=== PATIENT | female | born 1975 | race Caucasian/White ===

== ENCOUNTER 2016-08-29 18:26 | Emergency (ER) | payer OTHER ==
--- NOTE | ~2016-08-29 | CR72 ---
[facility]. [facility] A Service of [facility] RADIOLOGY TEXT RESULTS PATIENT: TANKSeptember LOCATION: SED : 79 UNIT #: [id number] AGE: [address]: El Alvarez MD SEX: F ORDER DR: [id number] [address] [address] [id number] E MR#: [id number] Acc #: [id number] NAME: TANK KELLY Alexa. : 1975 SEX: F STUDY DATE/TIME: 08/29/2016 18:29 UNIT: SED ROOM: STUDY DESCRIPTION: CR Chest Single View Portable Attending Physician: El Alvarez M.D. Ordering Physician: El Alvarez M.D. Primary Care Physician: Angela Dunlap A.P.R.N. MEDICAL IMAGING REPORT This report is preliminary unless electronic signature is present. EXAM Portable chest HISTORY Chest pain just prior to admission. COMPARISON 09/25/2015 FINDINGS A single AP portable view of the chest shows both lungs to be clear. The heart is normal in size. The mediastinal contour is normal. No significant bone abnormalities are seen. IMPRESSION Normal portable chest. Dictated by... Travon Pride M.D. THIS IS AN ELECTRONICALLY VERIFIED REPORT Travon Pride M.D. at 08/30/2016 6:31 PM Juanjo TD: 08/30/2016 08:51 JOB #: [id number] MEDICAL IMAGING REPORT
--- NOTE | ~2016-08-29 | EKG ---
PATIENT: TANKSeptember UNIT #: [id number] Ventricular Rate: 71 BPM Atrial Rate: 71 BPM P-R Interval: 134 ms QRS Duration: 82 ms Q-T Interval: 408 ms QTC Calculation(Bezet): 443 ms P [place]: 72 degrees Calculated R [place]: 1 degrees Calculated T [place]: 29 degrees Diagnosis Line: Normal sinus rhythm Diagnosis Line: Cannot rule out Anterior infarct , age Diagnosis Line: undetermined Diagnosis Line: Abnormal ECG Diagnosis Line: No previous ECGs available Diagnosis Line: Confirmed by KWADWO ZAMORA MD ([id number]) on Diagnosis Line: 08/31/2016 11:21:32 AM INTERPRETING MD: NOAH MUNSON
[2016-08-29 18:17] LABS: POC - CKMB <1.0 ng/mL (0.0-7.9); POC - TROPONIN <0.05 ng/mL (<=0.05)
[~2016-08-29 18:26] MED LIST: BACTRIM 400-801 TA1; BACTRIM DS TABL1 TA1 PO; CIPRO PO; FLAGYL PO; FLEXERIL10 MG PO; LORTAB 7.51 TAB 7.5/ PO; MACROBID100 MG PO; MOBIC15 MG PO; NAPROXEN PO; NO MEDICATIONS; PRILOSEC20 M1 PO; PYRIDIUM PO; ROBAXIN500 MG PO; SKELAXIN PO; STOMACH MEDS; VICODIN 5/1 TAB 5/50 PO; VOLTAREN75 MG PO; ZITHROMAX PO
== END 2016-08-29 19:09 | disposition home or self-care (01) ==
LOC: SED 18:26
PROVIDERS: Emergency Medicine
DX: K29.00 Acute gastritis without bleeding (principal); F41.0 Panic disorder [episodic paroxysmal anxiety]; Z90.49 Acquired absence of other specified parts of digestive tract; Z98.51 Tubal ligation status
CPT/HCPCS: 36415; 71010; 82553; 83874; 84484; 93005; 96374; 96375; 99284; J1885; J2060